=== PATIENT | male | born 1960 | race Caucasian/White ===

== ENCOUNTER → 2018-07-17 12:36 | Outpatient (CLI) | payer BC, SELFPAY ==
[2018-07-18 13:46] LABS: PSA, Free 1.49 ng/mL
== END ==
PROVIDERS: PCP Urology; Visit Provider Urology
DX: R35.1 Nocturia (principal)
CPT/HCPCS: 36415; 84153; 84154

== ENCOUNTER → 2021-05-23 11:57 | Outpatient (CLI) | payer BC, MEDICARE, SELFPAY | PROVIDERS: Visit Provider Surgery | DX: Z01.812 Encounter for preprocedural laboratory examination (principal); Z11.52 Encounter for screening for COVID-19; Z12.11 Encounter for screening for malignant neoplasm of colon | CPT/HCPCS: U0003 ==

== ENCOUNTER 2021-05-25 06:29 | Day surgery (SDC) | payer BC, SELFPAY ==
[2021-05-18 15:05] VITALS: BMI 33.7
[2021-05-25] VITALS (7 sets, daily range): BP systolic 101–139; BP diastolic 72–94; PULSE 70–88; RESP 18–20; TEMP 36.4–36.7; O2SAT 92–96
[2021-05-25 07:15] LABS: POC Glucose,Bedside 142 (70-110)
--- NOTE | 2021-05-25 08:18 | HMH.SCOPE ---
- Procedure: Date: 05/25/21 Patient Date of :: 1960 Procedure Performed:: Colonoscopy with polypectomy Indications:: History of complex polyps Performing Provider:: Alex Quijano MD Referring Provider:: . Sedation:: Monitored anesthesia care Procedure:: After informed consent was obtained the patient was taken to the endoscopy suite. Sedation ensued after the patient was transferred to the left lateral decubitus position. Pulse, blood pressure, and oxygen saturation were monitored throughout the procedure. Digital rectal exam revealed no significant abnormality. The colonoscope was placed in position. The entire colon was evaluated. The colonoscope was carefully removed and the patient was transferred to recovery in stable condition. Please see findings and specimens below for detail. Findings:: Bowel preparation fair to moderate Moderate tortuosity Severe spasticity/lack of relaxation Polyps (see specimens) Specimens:: Small cecal polyp Lobulated transverse colon polyp Polyp at 30 cm Complex lobulated polyp at 10 cm (snare) Recommendations:: Timing of repeat colonoscopy is pending pathology but will likely be between 2-3 years secondary to persistent complex polyps and spasticity/lack of relaxation. Complications:: No immediate Estimated blood obtained (mL): 1
--- NOTE | 2021-05-25 13:16 | HMH.ANESCL ---
[facility] Anesthesia Checklist - Patient Identification Patient Identification: Arm Band - Structural Data Admitted From: Home Planned Operative Procedure/s: Colonoscopy Consent for Planned Operative Procedure(s) Verified: Yes Verified Documents: Surgical Consent, History and Physical - NPO Status Verified Time NPO: 00:00 - Additional verifications Anesthesia Reactions: No - Airway Assessment C-Spine Mobility Assessed: Yes TMJ Mobility Assessed: Yes Dentition: Good Dentition - Neurological Assessment Level of Consciousness: Awake, Alert - Anesthesia Plan Anesthesia Risk discussed: Yes Anesthesia Plan: Verified ASA Class: II Anesthesia Type: MAC [facility] History I have reviewed the patient's past medical history: Yes Medical History: Reports:: Asthma, Diabetes Mellitus Type 2, Hyperlipidemia, Hypertension Denies:: Cancer, Diabetes Mellitus Type 1, Internal Pacemaker, Lung Disease, MRSA, Seizures *Have you ever received a pneumonia vaccine?: Yes *Have you received a flu vaccine this season?: Yes Other Medical History: Reports: Other Anesthesia experience/problems:: None Other Surgeries: Yes: Colonoscopy, Other. No: Pacemaker Amputation: No Fractures: No - *Social History Smoking Status: Never smoker Alcohol Intake: never Substance Use Type: denies use *Occupational Status:: disabled Housing: house Household Members: spouse *Travel in the last 8 weeks: None Family Hx:: Asthma, Hyperlipidemia, Hypertension, Diabetes, Cancer
== END 2021-05-25 09:10 | disposition home or self-care (01) ==
PROVIDERS: PCP Orthopaedic Surgery; Visit Provider Surgery
PROC: 0DJD8ZZ Inspection of Lower Intestinal Tract, Via Natural or Artificial Opening Endoscopic (ICD-10-PCS; CPT 45385; principal; 2021-05-25 07:30)
DX: Z12.11 Encounter for screening for malignant neoplasm of colon (principal); K62.1 Rectal polyp; K56.2 Volvulus; K63.5 Polyp of colon; K58.9 Irritable bowel syndrome, unspecified; Z86.010 Personal history of colon polyps; J45.909 Unspecified asthma, uncomplicated; E11.9 Type 2 diabetes mellitus without complications; E78.5 Hyperlipidemia, unspecified; I10 Essential (primary) hypertension; Z80.9 Family history of malignant neoplasm, unspecified; Z82.49 Family history of ischemic heart disease and other diseases of the circulatory system
CPT/HCPCS: 45385; 45380; 82962

== ENCOUNTER 2021-09-30 18:36 | Emergency (ER) | payer BC, MEDICARE, SELFPAY ==
[2021-09-30 19:25] VITALS: BP 161/103; PULSE 100; RESP 18; TEMP 37.2; O2SAT 95; BMI 32.3
--- NOTE | 2021-09-30 19:33 | HMH.EDUTC ---
[facility] [place] Clinical Impression: Fall Qualifiers: Encounter type: initial encounter Qualified Code(s): W19.XXXA - Unspecified fall, initial encounter Sinusitis Qualifiers: Sinusitis location: unspecified location Chronicity: acute Recurrence: non-recurrent Qualified Code(s): J01.90 - Acute sinusitis, unspecified Right rib fracture Qualifiers: Encounter type: initial encounter Rib fracture type: single rib Fracture type: closed Qualified Code(s): S22.31XA - Fracture of one rib, right side, initial encounter for closed fracture Disposition: Home, Self-Care Condition on Discharge: Good Instructions: How to Use an Incentive Spirometer, Rib Fracture, DI for Rib Fracture, DI for Sinusitis Additional Instructions: Use the incentive spirometer 10 times every 2 hours while awake for the next couple of weeks. Make sure you are coughing and deep breathing even though it hurts. Take the medications as directed. I prescribed Ibuprofen 800 mg for pain. If it is ok for you to take ibuprofen then take this as needed for pain. Follow up with your primary care physician. GO TO THE ER FOR ANY WORSENING SYMPTOMS OR CONCERNS, ESPECIALLY ANY DIFFICULTY BREATHING Prescriptions: Ibuprofen [Ibuprofen 800mg Tablet] 800 mg PO Q8HP PRN #30 tab PRN Reason: Moderate Pain Transmission Status: Received by [facility] Benzonatate [Benzonatate 100mg cap] 100 mg PO TIDP PRN #30 cap PRN Reason: Cough Transmission Status: Received by [facility] Azithromycin [Z-Panda 250mg Tab*] 250 mg PO UD DOSE PK #6 tab Transmission Status: [facility] Referrals: Sahil Rivera MD [Primary Care Provider] - Time of Disposition: 21:00 Medical Decision Making - Medical Records Medical records reviewed: No: I reviewed the patient's medical records. - Gaudencio Inquiry Pt receiving controlled substance: No Vital Signs: 09/30/21 19:25 09/30/21 21:00 Temperature 98.9 F 98.9 F Temperature Source Oral Pulse Rate 95 H Pulse Rate [Left] 100 H Respiratory Rate 18 18 Blood Pressure 161/103 H Blood Pressure [Right Arm] 161/103 H Blood Pressure Mean [Right Arm] 122 02 Sat by Pulse Oximetry 95 - Lab Data Lab results reviewed: Yes: I reviewed the patient's lab results. - Radiology Data #1 Image(s): Chest Image Reviewed: Yes I reviewed the patient's radiology image, Yes I have reviewed radiologist's interpretation Preliminary Findings: Abnormal PROCEDURE INFORMATION: Exam: XR Right Ribs with PA Chest Exam date and time: 09/30/2021 7:34 PM Age: 60 years old Clinical indication: Injury or trauma; Fall; Rib area; Blunt trauma (contusions or hematomas); Additional info: Fall, rib pain TECHNIQUE: Imaging protocol: XR Right ribs with PA chest. Views: 3 views COMPARISON: No relevant prior studies available. FINDINGS: Lungs: Unremarkable. No consolidation. Pleural spaces: Unremarkable. No pleural effusion. No pneumothorax. Heart/Mediastinum: Unremarkable. No cardiomegaly. Bones/joints: Mildly displaced right 9th and 10th rib fractures. IMPRESSION: Mildly displaced right 9th and 10th rib fractures. [facility] [place] HPI - General Stated complaint: a/o 09/29 fell injured right rib Time Seen by Provider: 09/30/21 19:34 - History of Present Illness Provider Complaint: He states that yesterday he was hunting deer when he fell and came down on a log onto his right ribs. Since then he has had right rib pain that is worse with deep breathing and coughing. He has had sinus congestion for the past 1 week and he would like to have a covid test done on himself today also. - Related Data Home Medications Medication Instructions Recorded Confirmed amlodipine 10 mg-atorvastatin 20 1 tab PO ONCE 06/03/18 06/07/21 mg tablet aspirin 81 mg tablet,delayed 81 mg PO ONCE 06/03/18 06/07/21 release colchicine
[2021-09-30 21:00] VITALS: BP 161/103; PULSE 95; RESP 18; TEMP 37.2
== END 2021-09-30 21:18 | disposition home or self-care (01) ==
PROVIDERS: Emergency Provider Nurse Practitioner Family; PCP Family Medicine
DX: S22.31XA Fracture of one rib, right side, initial encounter for closed fracture (principal); J01.90 Acute sinusitis, unspecified; W18.09XA Striking against other object with subsequent fall, initial encounter; Y92.89 Other specified places as the place of occurrence of the external cause; E11.9 Type 2 diabetes mellitus without complications; I10 Essential (primary) hypertension; E78.5 Hyperlipidemia, unspecified
CPT/HCPCS: 71101; 99202; C9803; G0463; U0003; U0005

== ENCOUNTER → 2021-12-21 16:32 | Outpatient (CLI) | payer BC, MEDICARE, SELFPAY | PROVIDERS: Visit Provider Nurse Practitioner | DX: Z20.822 Contact with and (suspected) exposure to COVID-19 (principal) | CPT/HCPCS: C9803; U0003; U0005 ==

== ENCOUNTER 2021-12-30 16:34 | Emergency (ER) | payer BC, MEDICARE, SELFPAY ==
[2021-12-30 17:10] VITALS: BP 139/92; PULSE 84; RESP 18; TEMP 37.2; O2SAT 95; BMI 32.5
--- NOTE | 2021-12-30 17:28 | HMH.EDUTC ---
[facility] [place] Clinical Impression: Acute bronchitis Qualifiers: Bronchitis organism: other organism Qualified Code(s): J20.8 - Acute bronchitis due to other specified organisms Disposition: Home, Self-Care Condition on Discharge: Good Instructions: DI for Acute Bronchitis Additional Instructions: Start antibiotic today. Be sure to complete entire prescription even if feeling better Tylenol and ibuprofen as needed for pain or fever Humidifier/vaporizer/hot steamy shower Follow-up with primary care tomorrow. Follow-up immediately in the ER of the [facility] for new or worsening symptoms or no noticeable improvement over the next 48-72 hours. Stop smoking Asya Hoyt will not cause drowsiness to use at bedtime to help stop cough so that she can get some sleep Start steroids today. Helps with inflammation therefore coughing and wheezing. Follow directions on package. Prescriptions: predniSONE [Prednisone 20mg Tab] 20 mg PO BID #10 tab Transmission Status: Pending to [facility] Azithromycin [Zithromax 250mg tab] 250 mg PO DIRECTED #6 tab Transmission Status: Pending to [facility] Referrals: Sahil Rivera MD [Primary Care Provider] - Time of Disposition: 17:32 Medical Decision Making - Gaudencio Inquiry Pt receiving controlled substance: No Vital Signs: 12/30/21 17:10 Temperature 99.0 F Temperature Source Temporal Artery Scan Pulse Rate [Right Brachial] 84 Respiratory Rate 18 Blood Pressure [Right Arm] 139/92 H Blood Pressure Mean [Right Arm] 107 Blood Pressure Source [Right Arm] Automatic Cuff Blood Pressure Position [Right Arm] Sitting 02 Sat by Pulse Oximetry 95 Oxygen Delivery Method Room Air Orders (Tests/Meds): ORDERS Category Date Time Status Covid-19 Nasal PCR ([facility]) Routine Lab 12/30/21 17:27 Ordered [facility] [place] - General Chief complaint: Urgent [facility] Stated complaint: Cough Congestion Time Seen by Provider: 12/30/21 17:28 Mode of Arrival: Ambulatory Source of Information: Patient Limitations: No Limitations Description of Symptoms (Recalled from Triage Doc. by RN): PATIENT C/O DEEP, DRY COUGH AND CONGESTION X 2 DAYS HEENT Symptoms (Recalled from RN notes): Yes Resp Symptoms (Recalled from RN notes): Yes Skin Symptoms (Recalled from RN notes): No MS Symptoms (Recalled from RN notes): No Functional Status (Recalled from RN notes): WNL - History of Present Illness Provider Complaint: 61 yr old female presents for deep cough with thick dark sputum, and congestion for 2 days. - Related Data Home Medications Medication Instructions Recorded Confirmed amlodipine 10 mg-atorvastatin 20 1 tab PO ONCE 06/03/18 06/07/21 mg tablet aspirin 81 mg tablet,delayed 81 mg PO ONCE 06/03/18 06/07/21 release colchicine 0.6 mg tablet 0.6 mg PO ONCE 06/03/18 06/07/21 indomethacin 50 mg capsule 50 mg PO BID 06/03/18 06/07/21 loratadine 10 mg capsule 10 mg PO ONCE 06/03/18 06/07/21 metformin 1,000 mg tablet 1,000 mg PO BID MDD diabetes 06/03/18 06/07/21 simvastatin 20 mg tablet 20 mg PO QPM 06/03/18 06/07/21 Previous Rx's Medication Instructions Recorded Azithromycin [Z-Panda 250mg Tab*] 250 mg PO UD DOSE PK #6 tab 09/30/21 Benzonatate [Benzonatate 100mg 100 mg PO TIDP PRN #30 cap 09/30/21 cap] Ibuprofen [Ibuprofen 800mg 800 mg PO Q8HP PRN #30 tab 09/30/21 Tablet] Azithromycin [Zithromax 250mg 250 mg PO DIRECTED #6 tab 12/30/21 tab] predniSONE [Prednisone 20mg 20 mg PO BID #10 tab 12/30/21 Tab] Allergies Allergy/AdvReac Type Severity Reaction Status Date / Time No Known Drug Allergies Allergy Unknown Verified 06/07/21 09:28 [NKDA] - Worker's Comp Is this a Worker's Comp case?: No [facility] History - Hepatitis A Screen Drug use history?: No High risk sexual behaviors?: No History of sexually transmitted infection?: No Currently employed?: No Childcare worker?: No Do you have indoor plumbing?
[2021-12-30 17:36] VITALS: BP 139/92; PULSE 84; RESP 18; TEMP 37.2; O2SAT 95
== END 2021-12-30 17:42 | disposition home or self-care (01) ==
LOC: ER 16:41 → UTC 16:46
PROVIDERS: Emergency Provider Nurse Practitioner Family; PCP Family Medicine
DX: U07.1 COVID-19 (principal); J20.8 Acute bronchitis due to other specified organisms; E78.5 Hyperlipidemia, unspecified; I10 Essential (primary) hypertension; E11.9 Type 2 diabetes mellitus without complications
CPT/HCPCS: 99202; C9803; G0463; U0003; U0005

== ENCOUNTER 2023-03-31 19:31 | Emergency (ER) | payer BC, SELFPAY ==
--- NOTE | 2023-03-31 19:45 | HMH.EDGENADL ---
Discharge Plan Disposition Patient Disposition: Home, Self-Care Condition: Good Prescriptions Prescriptions: No Action aspirin 81 mg tablet,delayed release (DR/EC) 81 mg PO ONCE loratadine 10 mg capsule 10 mg PO ONCE metformin 1,000 mg tablet 1,000 mg PO BID MDD diabetes amlodipine-atorvastatin 10-20 mg tablet 1 tab PO ONCE colchicine [Colcrys] 0.6 mg tablet 0.6 mg PO ONCE simvastatin 20 mg tablet 20 mg PO QPM indomethacin 50 mg capsule 50 mg PO BID azithromycin 250 MG tablet 250 mg PO UD DOSE PK Qty: 6 0RF Rx Instructions: Take two (2) tablets today, then one (1) tablet days #2 thru #5 ibuprofen 800 MG tablet 800 mg PO Q8HP PRN (Reason: Moderate Pain) Qty: 30 0RF benzonatate 100 MG capsule 100 mg PO TIDP PRN (Reason: Cough) Qty: 30 0RF azithromycin 250 MG tablet 250 mg PO DIRECTED Qty: 6 0RF Rx Instructions: Take two (2) tablets on day #1, then one (1) tablet day #2 thru #5 prednisone 20 MG tablet 20 mg PO BID Qty: 10 0RF benzonatate 100 MG capsule 100 mg PO BID PRN (Reason: Cough) 7 Days Qty: 14 0RF Referrals Follow up/Referrals: Ap Ga MD [Primary Care Provider] - See instructions Clinical Impressions Clinical Impression: Fall Discharge ED Provider: Vlad Velasco General Adult HPI General Stated complaint: AO 03/17@1800@Home injured R Arm Time Seen by Provider: 03/31/23 19:44 Mode of Arrival: Wheelchair Source of Information: Patient Limitations: No Limitations History of Present Illness HPI narrative: 62yo M presents to the ER secondary to ground leve fall approximately 2 weeks ago. Complains of right shoulder pain. No other injuries noted. Related Data Home Medications Medication Instructions Recorded Confirmed amlodipine 10 mg-atorvastatin 20 1 tab PO ONCE blood pressure 06/03/18 06/07/21 mg tablet aspirin 81 mg tablet,delayed 81 mg PO ONCE thinner 06/03/18 06/07/21 release colchicine 0.6 mg tablet (Colcrys) 0.6 mg PO ONCE gout 06/03/18 06/07/21 indomethacin 50 mg capsule 50 mg PO BID gout 06/03/18 06/07/21 loratadine 10 mg capsule 10 mg PO ONCE allergies 06/03/18 06/07/21 metformin 1,000 mg tablet 1,000 mg PO BID Diabetes 06/03/18 06/07/21 simvastatin 20 mg tablet 20 mg PO QPM Cholesterol 06/03/18 06/07/21 Previous Rx's Medication Instructions Recorded azithromycin 250 mg tablet 250 mg PO UD DOSE PK #6 tabs 09/30/21 benzonatate 100 mg capsule 100 mg PO TIDP PRN Cough #30 caps 09/30/21 ibuprofen 800 mg tablet 800 mg PO Q8HP PRN Moderate Pain 09/30/21 #30 tabs azithromycin 250 mg tablet 250 mg PO DIRECTED #6 tabs 12/30/21 benzonatate 100 mg capsule 100 mg PO BID PRN Cough 7 days #14 12/30/21 caps prednisone 20 mg tablet 20 mg PO BID #10 tabs 12/30/21 Allergies Allergy/AdvReac Type Severity Reaction Status Date / Time No Known Drug Allergies Allergy Unknown Verified 06/07/21 09:28 [NKDA] [facility] Disclaimer: The information contained in this section may have been updated after the patient was seen, as this information can be updated by other users. Social History Smoking Status: Never smoker alcohol intake: never substance use type: denies use current occupational status: disabled Travel in the last 8 weeks: None household members: spouse housing: house current occupational exposures/hazards: No caffeine: Yes ROS Obtained: Yes Systems reviewed as appropriate & no additional complaints except as documented Physical Exam General General appearance: alert and in no apparent distress Head Head exam: atraumatic Eye Eye exam: Present normal appearance ENT ENT exam: Present normal exam Neck Neck exam: Present normal inspection, full ROM and trachea midline Chest Chest inspection: Present symmetric chest wall rise Respiratory Respiratory exam: Present normal lung sounds bilaterall
[2023-03-31 19:54] VITALS: BP 146/92; PULSE 80; RESP 16; TEMP 36.6; O2SAT 98; BMI 31.7
[2023-03-31 20:04] VITALS: BP 140/91; PULSE 89; RESP 18; TEMP 36.6; O2SAT 99
== END 2023-03-31 20:07 | disposition home or self-care (01) ==
PROVIDERS: Emergency Provider Family Medicine; PCP Family Medicine
DX: M25.511 Pain in right shoulder (principal); W18.30XA Fall on same level, unspecified, initial encounter
CPT/HCPCS: 99283

== ENCOUNTER → 2023-04-26 16:59 | Outpatient (CLI) | payer BC, SELFPAY | PROVIDERS: PCP Internal Medicine; Visit Provider Internal Medicine | DX: L02.31 Cutaneous abscess of buttock (principal); B96.89 Other specified bacterial agents as the cause of diseases classified elsewhere; B95.7 Other staphylococcus as the cause of diseases classified elsewhere | CPT/HCPCS: 87070; 87077; 87186; 87205 ==

== ENCOUNTER → 2023-05-06 13:34 | Outpatient (CLI) | payer BC, SELFPAY ==
[2023-05-06 15:19] LABS: Basophils # 0.1 K/mm3 (0-0.2); Basophils % 1.2 % (0.1-2.0); Eosinophils # 0.4 K/mm3 (0.0-0.4); Eosinophils % 6.1 % (0.1-12.0); Hematocrit 55.8 % (42.0-52.0); Lymphocytes # 1.3 K/mm3 (0.7-4.5); Mean Corpuscular HGB Conc 32.5 g/dL (31.8-35.4); Mean Corpuscular Hemoglobin 29.5 pg (27.0-31.2); Mean Corpuscular Volume 90.6 fl (80-94); Mean Platelet Volume 11.6 fl (7.4-10.4); Monocytes # 0.5 K/mm3 (0.1-1.0); Monocytes % 8.8 % (1.7-9.3); Neutrophils # 3.8 K/mm3 (1.8-7.8); Platelet Count 269 K/mm3 (142-424); Red Blood Count 6.16 M/mm3 (4.60-6.20); Red Cell Distribution Width 12.6 % (11.5-17.5); White Blood Count 6.1 K/mm3 (4.8-10.8)
[2023-05-06 15:33] LABS: Hemoglobin 18.3 g/dL (14.1-18.0)
[2023-05-06 15:50] LABS: Alanine Aminotransferase 38 U/L (12-78); Albumin Level 4.6 g/dl (3.5-5.0); Albumin/Globulin Ratio 1.6 (1.1-1.8); Alkaline Phosphatase 92 U/L (38-126); Aspartate Amino Transferase 35 U/L (17-59); Bilirubin,Total 0.7 mg/dl (0.2-1.3); Blood Urea Nitrogen 13 mg/dl (9-20); Calcium 9.9 mg/dl (8.4-10.2); Carbon Dioxide 22 mmol/L (22.0-30.0); Chloride 102 mmol/L (98-107); Chol/HDL Ratio 5.9 (1-3.5); Cholesterol 246 mg/dl (140-200); Estimated Glomerular Filt Rate 99 ml/min (>60); GFR (African American) 119 ML/MIN (>60); Globulin 2.9 g/dL (1.3-3.2); Glucose 196 mg/dl (74-100); HDL Cholesterol 42 mg/dl (40-60); Sodium 139 mmol/L (136-145); Total Protein,Serum 7.5 g/dl (6.3-8.2); Triglycerides 162 mg/dl (30-150); Uric Acid 6.5 mg/dl (3.5-8.5); VLDL Cholesterol 32 mg/dL (0-40)
[2023-05-06 16:01] LABS: Direct LDL Cholesterol 154.56 mg/dL (100-129)
[2023-05-06 16:20] LABS: Prostate Specific Ag Screen 1.5 ng/ml (0.0-4.0)
== END ==
PROVIDERS: PCP Internal Medicine; Visit Provider Internal Medicine
DX: R73.01 Impaired fasting glucose (principal); E78.5 Hyperlipidemia, unspecified; I10 Essential (primary) hypertension; L02.31 Cutaneous abscess of buttock; M10.9 Gout, unspecified; Z12.5 Encounter for screening for malignant neoplasm of prostate
CPT/HCPCS: 80053; 80061; 83036; 84550; 85025; G0103

== ENCOUNTER → 2023-06-07 11:03 | Outpatient (CLI) | payer BC, SELFPAY ==
--- NOTE | 2023-06-07 11:06 | XR_ITS ---
FINAL REPORT CLINICAL HISTORY: RT SHOULDER PAIN, FALL1 MONTH AGO FINDINGS: Right shoulder Three views were obtained. There is no acute fracture or dislocation. There is mild AC joint degenerative change. No soft tissue abnormality is identified. IMPRESSION: No acute process. Reviewed, Interpreted and Dictated by Mayank Teresa III, MD Transcribed by Verna Cartagena Authenticated and [facility]
== END ==
PROVIDERS: PCP Internal Medicine; Visit Provider Internal Medicine
DX: M25.511 Pain in right shoulder (principal); W19.XXXS Unspecified fall, sequela
CPT/HCPCS: 73030

== ENCOUNTER → 2023-11-08 13:59 | Outpatient (CLI) | payer BC, SELFPAY ==
[2023-11-08 15:42] LABS: Alanine Aminotransferase 24 U/L (12-78); Alkaline Phosphatase 74 U/L (38-126); Aspartate Amino Transferase 25 U/L (17-59); Bilirubin,Total 0.9 mg/dl (0.2-1.3); Blood Urea Nitrogen 12 mg/dl (9-20); Calcium 9.9 mg/dl (8.4-10.2); Carbon Dioxide 23 mmol/L (22.0-30.0); Chloride 101 mmol/L (98-107); Cholesterol 239 mg/dl (140-200); Estimated Glomerular Filt Rate 99 ml/min (>60); GFR (African American) 119 ML/MIN (>60); Glucose 158 mg/dl (74-100); Triglycerides 157 mg/dl (30-150); VLDL Cholesterol 31 mg/dL (0-40)
[2023-11-08 15:43] LABS: Albumin Level 4.7 g/dl (3.5-5.0); Albumin/Globulin Ratio 1.7 (1.1-1.8); Chol/HDL Ratio 6.3 (1-3.5); Globulin 2.8 g/dL (1.3-3.2); HDL Cholesterol 38 mg/dl (40-60); Potassium 4.7 mmoL/L (3.5-5.1); Total Protein,Serum 7.5 g/dl (6.3-8.2)
[2023-11-08 15:52] LABS: Direct LDL Cholesterol 159.59 mg/dL (100-129)
[2023-11-08 16:23] LABS: Hemoglobin A1C 7.7 % (4.0-6.0)
[2023-11-08 16:37] LABS: Anion Gap 16.7 mEq/L (5-15); Sodium 136 mmol/L (136-145)
== END ==
PROVIDERS: PCP Internal Medicine; Visit Provider Internal Medicine
DX: E11.9 Type 2 diabetes mellitus without complications (principal); I10 Essential (primary) hypertension; E78.5 Hyperlipidemia, unspecified; M75.101 Unspecified rotator cuff tear or rupture of right shoulder, not specified as traumatic; Z79.84 Long term (current) use of oral hypoglycemic drugs
CPT/HCPCS: 80053; 80061; 83036

== ENCOUNTER 2024-05-25 16:43 | Outpatient (CLI) | payer BC, SELFPAY ==
[2024-05-25 16:25] LABS: Basophils # 0.1 K/mm3 (0-0.2); Eosinophils # 0.4 K/mm3 (0.0-0.4); Eosinophils % 5.5 % (0.1-12.0); Hematocrit 43.7 % (42.0-52.0); Hemoglobin 16.7 g/dL (14.1-18.0); Lymphocytes # 1.8 K/mm3 (0.7-4.5); Lymphocytes % 23.7 % (10-50); Mean Corpuscular HGB Conc 38.1 g/dL (31.8-35.4); Mean Corpuscular Hemoglobin 36.3 pg (27.0-31.2); Mean Corpuscular Volume 95.2 fl (80-94); Mean Platelet Volume 11.7 fl (7.4-10.4); Monocytes # 0.6 K/mm3 (0.1-1.0); Monocytes % 7.7 % (1.7-9.3); Neutrophils # 4.7 K/mm3 (1.8-7.8); Neutrophils % 62.2 % (37.0-80.0); Platelet Count 226 K/mm3 (142-424); Red Blood Count 4.59 M/mm3 (4.60-6.20); Red Cell Distribution Width 13.5 % (11.5-17.5); White Blood Count 7.5 K/mm3 (4.8-10.8)
[2024-05-25 16:33] LABS: Chloride 102 mmol/L (98-107)
[2024-05-25 16:34] LABS: Potassium 5.4 mmoL/L (3.5-5.1); Sodium 138 mmol/L (136-145)
[2024-05-25 16:36] LABS: Alanine Aminotransferase 31 U/L (12-78); Anion Gap 17.4 mEq/L (5-15); Aspartate Amino Transferase 40 U/L (17-59); Bilirubin,Total 0.9 mg/dl (0.2-1.3); Blood Urea Nitrogen 19 mg/dl (9-20); Carbon Dioxide 24 mmol/L (22.0-30.0); Estimated Glomerular Filt Rate 115 ml/min (>60); GFR (African American) 139 ML/MIN (>60)
[2024-05-25 16:37] LABS: Albumin Level 4.7 g/dl (3.5-5.0); Albumin/Globulin Ratio 1.7 (1.1-1.8); Alkaline Phosphatase 44 U/L (38-126); Chol/HDL Ratio 5.1 (1-3.5); Cholesterol 200 mg/dl (140-200); Globulin 2.8 g/dL (1.3-3.2); Glucose 170 mg/dl (74-100); HDL Cholesterol 39 mg/dl (40-60); Total Protein,Serum 7.5 g/dl (6.3-8.2); Triglycerides 138 mg/dl (30-150); VLDL Cholesterol 28 mg/dL (0-40)
[2024-05-25 16:48] LABS: Direct LDL Cholesterol 129.52 mg/dL (100-129)
[2024-05-25 18:11] LABS: Prostate Specific Ag Screen 1.1 ng/ml (0.0-4.0)
[2024-05-25 20:07] LABS: Hemoglobin A1C 8.7 % (4.0-6.0)
== END 2024-05-25 23:59 | disposition home or self-care (01) ==
LOC: LAB.DROPOF 16:43
PROVIDERS: PCP Internal Medicine; Visit Provider Internal Medicine
DX: E78.5 Hyperlipidemia, unspecified (principal); I10 Essential (primary) hypertension; E11.9 Type 2 diabetes mellitus without complications; Z12.5 Encounter for screening for malignant neoplasm of prostate
CPT/HCPCS: 80053; 80061; 83036; 85025; G0103

== ENCOUNTER 2024-07-12 14:06 | Emergency (ER) | payer BC, MEDICARE, SELFPAY ==
--- NOTE | 2024-07-12 14:39 | XR_ITS ---
PROCEDURE INFORMATION: Exam: XR Left Shoulder Exam date and time: 07/12/2024 2:39 PM Age: 63 years old Clinical indication: Injury or trauma; Fall; Blunt trauma (contusions or hematomas); Shoulder; Left; Additional info: Fall this morning pain in shoulder TECHNIQUE: Imaging protocol: Radiologic exam of the left shoulder. Views: 2 or more views. COMPARISON: No relevant prior studies available. FINDINGS: Bones/joints: Degenerative changes in the acromioclavicular joint . There is no evidence of acute fracture.There is no evidence of malalignment or dislocation. Soft tissues: Normal. IMPRESSION: There is no evidence of acute fracture.There is no evidence of malalignment or dislocation.
--- NOTE | 2024-07-12 14:39 | XR_ITS ---
PROCEDURE INFORMATION: Exam: XR Lumbosacral Spine Exam date and time: 07/12/2024 2:43 PM Age: 63 years old Clinical indication: Injury or trauma; Fall; Blunt trauma (contusions or hematomas); Additional info: Fall this morning TECHNIQUE: Imaging protocol: Radiologic exam of the lumbosacral spine. Views: 4 or 5 views. COMPARISON: No relevant prior studies available. FINDINGS: Bones/joints: Chronic appearing compression fractures of T12, L1 and L2. Intervertebral disc space narrowing L1 through L3 consistent with degenerative disc disease. There is no evidence of acute fracture.There is no evidence of malalignment or dislocation. Soft tissues: Unremarkable. IMPRESSION: 1. Chronic appearing compression fractures of T12, L1 and L2. 2. Intervertebral disc space narrowing L1 through L3 consistent with degenerative disc disease. 3. There is no evidence of acute fracture.There is no evidence of malalignment or dislocation.
--- NOTE | 2024-07-12 14:39 | XR_ITS ---
PROCEDURE INFORMATION: Exam: XR Left Clavicle, Complete Exam date and time: 07/12/2024 2:41 PM Age: 63 years old Clinical indication: Injury or trauma; Fall; Blunt trauma (contusions or hematomas); Shoulder; Left TECHNIQUE: Imaging protocol: Radiologic exam of the left clavicle. Complete exam. Views: Any number of views. COMPARISON: CR XR SHOULDER LT MIN 2V 07/12/2024 2:39 PM FINDINGS: Bones/joints: No fracture of the clavicle. Degenerative changes in the acromioclavicular joint and glenohumeral joint. There is no evidence of acute fracture.There is no evidence of malalignment or dislocation. Soft tissues: Normal. IMPRESSION: 1. No fracture of the clavicle. 2. There is no evidence of acute fracture.There is no evidence of malalignment or dislocation.
[2024-07-12 14:40] VITALS: BP 143/77; PULSE 66; RESP 18; TEMP 36.6; O2SAT 96; BMI 30.9
--- NOTE | 2024-07-12 14:55 | EXP.UTC ---
Discharge Plan Disposition Patient Disposition: Home, Self-Care Condition: Good Prescriptions Prescriptions: New methocarbamol 500 mg tablet 500 mg PO TID PRN (Reason: muscle spasm) Qty: 15 0RF lidocaine 4 % adhesive patch,medicated 1 patch topical DAILY PRN (Reason: pain) Qty: 10 0RF Rx Instructions: apply patch leave on for 12 hours then remove for 12 hours No Action metformin 1,000 mg tablet 1,000 mg PO BID MDD diabetes lisinopril-hydrochlorothiazide 20-12.5 mg tablet 1 tab PO DAILY Patient Comments: TAKE 1 TABLET BY MOUTH ONCE DAILY FOR BLOOD PRESSURE rosuvastatin 20 mg tablet 20 mg PO .COMPLEX Qty: 24 1RF Rx Instructions: 20 mg orally two times week; glipizide 5 mg tablet 5 mg PO DAILY Qty: 90 1RF Rx Instructions: Take before breakfast Referrals Follow up/Referrals: Dejuan Vidales MD [Primary Care Provider] - See instructions Activity Restrictions/Add. Instructions Additional Instructions/Restrictions: *Ibuprofen zoya 6 hours with meal as needed for pain/inflammation *Remember you had a Toradol shot in the clinic today, which is similar to Motrin *Not additional anti-inflammatory like motrin, aleve, advil with the above amount of ibuprofen. You can still take Tylenol every 4 hours as needed if you need something else for pain *Ice 20 minutes every 2 hours for the first 48 hours after the initial injury followed by moist heat every 20 minutes 3-4 times a day to affected area *Muscle relaxer every 8 hours as needed for muscle spasms but remember, it WILL cause drowsiness You cannot take it and drive, operate machinery or care for small children. Lidocaine patch may help with pain in back *Keep this area active, no movement leads to more stiffness, However take it easy and avoid heavy lifting pushing or pulling *Follow up with you family doctor if no improvement for further treatment Clinical Impressions Clinical Impression: Fall Instructions Patient Instructions: Methocarbamol, Lidocaine Transdermal Patch Print Language Print Language: Italian Discharge ED Provider: Meena Valero [facility] [place] General Stated complaint: AO fall 07/12 100, back and left shoulder pain Mode of Arrival: Ambulatory Source of Information: Patient Limitations: No Limitations Time Seen by Provider: 07/12/24 14:55 Description of Symptoms (Recalled from Triage Doc. by RN): PATIENT STATES HE WAS TAKING HIS DOGS OUT LAST NIGHT IN THE DARK WHEN HE TRIPPED ON A GAIL HAMMER AND FELL. PATIENT C/O RIGHT LOWER BACK PAIN AND LEFT SHOULDER/CLAVICLE PAIN. HEENT Symptoms (Recalled from RN notes): No Resp Symptoms (Recalled from RN notes): No Skin Symptoms (Recalled from RN notes): No MS Symptoms (Recalled from RN notes): Yes Functional Status (Recalled from RN notes): WNL History of Present Illness Provider Complaint: Patient states that he was taking his dog out last night around 1am when he tripped over a gail handle and fell landing on his left shoulder area States he has been having pain in his left shoulder, left clavicle and right side lower back since falling so he came in to get checked Related Data Home Medications ?Medication ?Instructions ?Recorded ?Confirmed metformin 1,000 mg tablet 1,000 mg PO BID Diabetes 06/03/18 07/12/24 lisinopril 20 1 tab PO DAILY 05/25/24 07/12/24 mg-hydrochlorothiazide 12.5 mg tablet Previous Rx's ?Medication ?Instructions ?Recorded rosuvastatin 20 mg tablet 20 mg PO .COMPLEX #24 tabs 05/18/24 glipizide 5 mg tablet 5 mg PO DAILY #90 tabs 05/26/24 lidocaine 4 % topical patch 1 patch topical DAILY PRN pain #10 07/12/24 ea methocarbamol 500 mg tablet 500 mg PO TID PRN muscle spasm #15 07/12/24 tabs Allergies Allergy/AdvReac Type Severity Reaction Status Date / Time No Known Drug Allergies Allergy Unknown Verified 06/16/24 15:30 [NKDA] Worker's Comp Is this a Worker's Comp case?: No [facility] Disclaimer: The information contained in this section may have been updated after the patient was seen, as this information can be updated by other users. Medical History (Updated 07/12/24 @ 15:48 by Meena Valero APRN) Diabetes mellitus, type 2 Hyperlipidemia Hypertension Social History Smoking Status: Current every day smoker alcohol intake: never substance use type: denies use current occupational status: disabled Travel in the last 8 weeks: None household members: spouse housing: house current occupational exposures/hazards: No caffeine: Yes ROS Obtained: Yes All systems reviewed & no additional complaints except as documented and Yes Systems reviewed as appropriate & no additional complaints except as documented Constitutional Constitutional: Reports system reviewed and no additional complaints, except as documented and Reports as per HPI ENT Ears, Nose, Mouth, and Throat: Reports system reviewed and no additional complaints, except as documented and Reports as per HPI Cardiovascular Cardiovascular: Reports system reviewed and no additional complaints, except as documented and Reports as per HPI Respiratory Respiratory: Reports system reviewed and no additional complaints, except as documented and Reports as per HPI Musculoskeletal Musculoskeletal: Reports system reviewed and no additional complaints, except as documented, Reports as per HPI and Reports other Comments: Pain in left shoulder, clavicle and right lower back after falling this morning around 1am Physical Exam General General appearance: alert and in no apparent distress ENT ENT exam: Present mucous membranes moist Chest Chest inspection: Present normal inspection and symmetric chest wall rise; Absent tenderness Respiratory Respiratory exam: Present normal lung sounds bilaterally; Absent respiratory distress or wheezes Cardiovascular Cardiovascular exam: Present regular rate, normal rhythm and normal heart sounds Expanded Upper Extremity Exam Left: Shoulder exam: Present tenderness; Absent swelling, abrasion, laceration, ecchymosis or erythema Arm exam: Present normal inspection Elbow exam: Present normal inspection Forearm/Wrist exam: Present normal inspection Hand exam: Present normal inspection Back Exam Back 1 view image: 1. reports tightness feels like he pulled something, no obvious bruising, no open wounds denies loss of control of bowel or bladder Neurological Exam Neurological exam: Present alert, oriented X3 and normal gait Medical Decision Making Gaudencio Inquiry Pt receiving controlled substance: No Gaudencio was queried for this patient: No Vital Signs: 07/12/24 14:40 Temperature 97.8 F Temperature Source Oral Pulse Rate [Left Brachial] 66 Respiratory Rate 18 Blood Pressure [Left Arm] 143/77 H Blood Pressure Mean [Left Arm] 99 Blood Pressure Source [Left Arm] Automatic Cuff Blood Pressure Position [Left Arm] Sitting 02 Sat by Pulse Oximetry 96 Oxygen Delivery Method Room Air Orders (Tests/Meds): ORDERS Category Date Time Status Clavicle XR left [XR clavicle LT] Stat Exams 07/12/24 14:39 Taken Lumbar spine minimum 4 views [XR lumbar spine min 4V] Exams 07/12/24 14:39 Ordered Stat Shoulder XR left minimum 2 views [XR shoulder LT min 2V Exams 07/12/24 14:39 Taken ] Stat Radiology Data #1: Image(s): L-Spine Image Reviewed: Yes I have reviewed radiologist's interpretation IMPRESSION: 1. Chronic appearing compression fractures of T12, L1 and L2. 2. Intervertebral disc space narrowing L1 through L3 consistent with degenerative disc disease. 3. There is no evidence of acute fracture.There is no evidence of malalignment or dislocation. #2: Image(s): Shoulder Image Reviewed: Yes I have reviewed radiologist's interpretation IMPRESSION: There is no evidence of acute fracture.There is no evidence of malalignment or dislocation. #3: Image(s): Clavicle Image Reviewed: Yes I have reviewed radiologist's interpretation IMPRESSION: 1. No fracture of the clavicle. 2. There is no evidence of acute fracture.There is no evidence of malalignment or dislocation.
[2024-07-12 15:51] VITALS: BP 143/77; PULSE 66; RESP 18; TEMP 36.6; O2SAT 96
== END 2024-07-12 15:53 | disposition home or self-care (01) ==
PROVIDERS: Emergency Provider Nurse Practitioner; PCP Internal Medicine
DX: M25.512 Pain in left shoulder (principal); M54.59 Other low back pain; W01.198A Fall on same level from slipping, tripping and stumbling with subsequent striking against other object, initial encounter
CPT/HCPCS: 72110; 73000; 73030; 99212; 99214; G0463

== ENCOUNTER 2024-10-13 09:08 | Outpatient (CLI) | payer BC, MEDICARE, SELFPAY ==
--- NOTE | 2024-10-13 09:11 | XR_ITS ---
PROCEDURE INFORMATION: Exam: XR Lumbosacral Spine Exam date and time: 10/13/2024 9:18 AM Age: 63 years old Clinical indication: Low back pain; Additional info: Sharp low back pain, intermittent TECHNIQUE: Imaging protocol: Radiologic exam of the lumbosacral spine. Views: 2 or 3 views. COMPARISON: CR XR LUMBAR SPINE MIN 4V 07/12/2024 2:43 PM FINDINGS: Bones/joints: Mild dextroconvex curvature of the lumbar spine with apex at L3-L4 disc space. Scattered degenerative changes of the visualized osseous structures. Partially evaluated right total hip arthroplasty. Scattered regions of intervertebral disc height loss. Soft tissues: Unremarkable. IMPRESSION: Degenerative changes without acute finding.
== END 2024-10-13 23:59 | disposition home or self-care (01) ==
PROVIDERS: PCP Internal Medicine; Visit Provider Internal Medicine
DX: M54.50 Low back pain, unspecified (principal)
CPT/HCPCS: 72100

== ENCOUNTER 2025-01-13 09:40 | Outpatient (CLI) | payer BC, SELFPAY ==
[2025-01-13 18:19] LABS: Albumin Level 4.9 g/dl (3.5-5.0); Chloride 100 mmol/L (98-107); Potassium 5.5 mmoL/L (3.5-5.1); Sodium 139 mmol/L (136-145)
[2025-01-13 18:22] LABS: Alanine Aminotransferase 30 U/L (12-78); Alkaline Phosphatase 53 U/L (38-126); Anion Gap 18.5 mEq/L (5-15); Aspartate Amino Transferase 28 U/L (17-59); Bilirubin,Total 0.7 mg/dl (0.2-1.3); Blood Urea Nitrogen 21 mg/dl (9-20); Calcium 10.4 mg/dl (8.4-10.2); Carbon Dioxide 26 mmol/L (22.0-30.0); Chol/HDL Ratio 5.2 (1-3.5); Cholesterol 186 mg/dl (140-200); Estimated Glomerular Filt Rate 76 ml/min (>60); GFR (African American) 92 ML/MIN (>60); Globulin 2.5 g/dL (1.3-3.2); Glucose 127 mg/dl (74-100); HDL Cholesterol 36 mg/dl (40-60); Total Protein,Serum 7.4 g/dl (6.3-8.2); Triglycerides 149 mg/dl (30-150); VLDL Cholesterol 30 mg/dL (0-40)
[2025-01-13 18:39] LABS: Creatinine,Urine Random 94 mg/dL (Not Estab.); Direct LDL Cholesterol 112.48 mg/dL (100-129)
[2025-01-13 18:40] LABS: Microalbumin/Creatinine Ratio 27.5
[2025-01-13 19:15] LABS: Hemoglobin A1C 7.4 % (4.0-6.0)
== END 2025-01-13 23:59 | disposition home or self-care (01) ==
LOC: LAB.DROPOF 01-14 09:19
PROVIDERS: PCP Internal Medicine; Visit Provider Internal Medicine
DX: E78.5 Hyperlipidemia, unspecified (principal); E11.9 Type 2 diabetes mellitus without complications; I10 Essential (primary) hypertension
CPT/HCPCS: 80053; 80061; 82043; 82570; 83036

== ENCOUNTER 2025-07-15 09:45 | Outpatient (CLI) | payer BC, SELFPAY ==
[2025-07-15 14:54] LABS: Hematocrit 54.9 % (42.0-52.0); Immature Granulocytes % 0.8 %; Mean Corpuscular HGB Conc 33.3 g/dL (31.8-35.4); Mean Corpuscular Hemoglobin 29.9 pg (27.0-31.2); Mean Corpuscular Volume 89.7 fl (80-94); Nucleated Red Blood Cells % 0 %; Platelet Count 234 K/mm3 (142-424); Red Blood Count 6.12 M/mm3 (4.60-6.20); Red Cell Distribution Width-SD 42.4 fL; White Blood Count 7.1 K/mm3 (4.8-10.8)
[2025-07-15 14:55] LABS: Hemoglobin 18.3 g/dL (14.1-18.0)
[2025-07-15 15:37] LABS: Alanine Aminotransferase 20 U/L (12-78); Albumin Level 4.6 g/dl (3.5-5.0); Albumin/Globulin Ratio 1.8 (1.1-1.8); Alkaline Phosphatase 67 U/L (38-126); Aspartate Amino Transferase 23 U/L (17-59); Bilirubin,Total 0.6 mg/dl (0.2-1.3); Blood Urea Nitrogen 18 mg/dl (9-20); Calcium 9.9 mg/dl (8.4-10.2); Carbon Dioxide 24 mmol/L (22.0-30.0); Chloride 102 mmol/L (98-107); Cholesterol 174 mg/dl (140-200); Creatinine,Serum 0.90 mg/dl (0.66-1.25); Estimated Glomerular Filt Rate 86 ml/min (>60); GFR (African American) 103 ML/MIN (>60); Globulin 2.5 g/dL (1.3-3.2); Glucose 122 mg/dl (74-100); Sodium 137 mmol/L (136-145); Total Protein,Serum 7.1 g/dl (6.3-8.2); Triglycerides 132 mg/dl (30-150); Uric Acid 8.3 mg/dl (3.5-8.5)
[2025-07-15 15:39] LABS: Anion Gap 16.1 mEq/L (5-15); HDL Cholesterol 38 mg/dl (40-60); Potassium 5.1 mmoL/L (3.5-5.1)
[2025-07-15 16:23] LABS: Hepatitis C Ab Qual. W/ RFX NEGATIVE (Negative)
[2025-07-17 03:36] LABS: Hepatitis B Surface Antigen Negative (Negative)
[2025-07-17 11:30] LABS: Hemoglobin A1C 8.5 % (4.0-6.0)
== END 2025-07-15 23:59 | disposition home or self-care (01) ==
LOC: LAB.DROPOF 07-16 14:24
PROVIDERS: PCP Internal Medicine; Visit Provider Internal Medicine
DX: E11.42 Type 2 diabetes mellitus with diabetic polyneuropathy (principal); E78.5 Hyperlipidemia, unspecified; I10 Essential (primary) hypertension; M10.9 Gout, unspecified; Z11.59 Encounter for screening for other viral diseases
CPT/HCPCS: 80053; 80061; 83036; 84550; 85025; 86803; 87340; 87389